=== PATIENT | male | born 1950 | race Caucasian/White ===

== ENCOUNTER → 2019-10-09 | Outpatient (REF) | payer BC, MEDICARE ==
[2019-10-10 12:01] LABS: MEAN CORPUSCULAR HEMOGLOBIN 29.4 pg (27.0-33.0); MEAN CORPUSCULAR HGB CONC 32.6 g/dl (32.0-36.5); PLATELET COUNT, AUTOMATED 259 10^3/uL (150-450); RED BLOOD COUNT 5.11 10^6/uL (4.30-6.10); WHITE BLOOD COUNT 7.5 10^3/uL (4.0-10.0)
[2019-10-10 12:32] LABS: BLOOD UREA NITROGEN 16 MG/DL (7-18); CALCIUM LEVEL 9.5 MG/DL (8.8-10.2); CARBON DIOXIDE LEVEL 33 MEQ/L (21-32); CHLORIDE LEVEL 99 MEQ/L (98-107); FOLATE 19.2 NG/ML; FREE T4 1.55 NG/DL (0.76-1.46); GLOMERULAR FILTRATION RATE > 60.0 (>42); GLUCOSE, FASTING 95 MG/DL (70-100); POTASSIUM SERUM 4.5 MEQ/L (3.5-5.1); SODIUM LEVEL 137 MEQ/L (136-145); VITAMIN B12 LEVEL 833 PG/ML
== END ==
LOC: M SFHCCLAY 14:19
PROVIDERS: ATTEND Family Medicine
DX: R41.3 Other amnesia (principal); Z76.89 Persons encountering health services in other specified circumstances

== ENCOUNTER 2023-09-11 14:40 | Inpatient (IN) | payer BC, MEDICARE ==
[~2023-09-11] VITALS: Ht 175.3 cm; Wt 61.3 kg
[2023-09-11 16:38] LABS: BASO % 0.6 % (0.0-1.0); EOS # 0.1 10^3/uL (0.0-0.5); HEMATOCRIT 39.5 % (42.0-52.0); HEMOGLOBIN 13.3 g/dl (13.5-17.5); LYMPH # 1.2 10^3/uL (1.5-5.0); LYMPH % 19.8 % (24.0-44.0); MEAN CORPUSCULAR HEMOGLOBIN 30.2 pg (27.0-33.0); MEAN CORPUSCULAR HGB CONC 33.7 g/dl (32.0-36.5); MEAN CORPUSCULAR VOLUME 89.6 fl (80.0-96.0); MONO # 0.5 10^3/uL (0.0-0.8); MONO % 7.7 % (2.0-8.0); NEUTROPHILS # 4.4 10^3/uL (1.5-8.5); NEUTROPHILS % 70.7 % (36.0-66.0); PLATELET COUNT, AUTOMATED 277 10^3/uL (150-450); RED BLOOD COUNT 4.41 10^6/uL (4.30-6.10); WHITE BLOOD COUNT 6.2 10^3/uL (4.0-10.0)
[2023-09-11 17:00] LABS: ALBUMIN 3.7 G/DL (3.2-5.2); ALKALINE PHOSPHATASE 67 U/L (46-116); ALT/SGPT < 9 U/L (7.0-40); AST/SGOT 10 U/L (<34); BILIRUBIN,DIRECT 0.4 MG/DL (<0.4); BILIRUBIN,TOTAL 1.2 MG/DL (0.3-1.2); BLOOD UREA NITROGEN 22 MG/DL (9-23); CALCIUM LEVEL 9.1 MG/DL (8.3-10.6); CARBON DIOXIDE LEVEL 28 MMOL/L (20-31); CHLORIDE LEVEL 104 MMOL/L (98-107); CREATININE FOR GFR 0.87 MG/DL (0.70-1.30); GLOMERULAR FILTRATION RATE > 60.0 (>42); GLUCOSE, FASTING 85 MG/DL (74-106); POTASSIUM SERUM 3.9 MMOL/L (3.5-5.1); SODIUM LEVEL 140 MMOL/L (136-145); TOTAL PROTEIN 6.4 G/DL (5.7-8.2)
[2023-09-11 17:01] LABS: THYROID STIMULATING HORMONE 1.633 uIU/ML (0.55-4.78)
[2023-09-11 17:16] LABS: RSV AMPLIFICATION NEGATIVE (NEGATIVE)
[2023-09-11] MEDS ORDERED: SINEMET 25-100 MG TAB PO STA (19:20)
[2023-09-11] MEDS ORDERED: CLOPIDOGREL 75 MG TAB PO ONE (19:20)
[2023-09-11] MEDS ORDERED: CLOP75TA2 PO (21:09)
[2023-09-11] MEDS ORDERED: FLUD0.1T PO (21:09)
[2023-09-11] MEDS ORDERED: DONE10TA90 PO (21:09)
[2023-09-11] MEDS ORDERED: CHOL125C6 PO (21:09)
[2023-09-11] MEDS ORDERED: CARB25TA9 PO (21:09)
[2023-09-11] MEDS ORDERED: OMEG10002 PO (21:10)
[2023-09-11] MEDS ORDERED: MELA5CAP2 PO (21:18)
[2023-09-11] MEDS ORDERED: HOME MED LIST COMPLETE! XX SCH (21:20)
[2023-09-11] MEDS ORDERED: MOM 30ML SUSPENSION UDC PO PRN (22:50)
[2023-09-11] MEDS ORDERED: ACETAMINOPHEN TAB 650MG DOSE (2X325MG) PO PRN (22:50)
[2023-09-11] MEDS ORDERED: MAALOX 30 ML SUSP *UDC PO PRN (22:50)
[2023-09-12] MEDS ORDERED: RAMELTEON 8 MG TAB (ROZEREM) PO ONE (01:30)
[2023-09-12] MEDS: FLUDROCORTISONE ACETATE 0.1 MG TAB PO SCH (06:22)
[2023-09-12] MEDS: SINEMET 25-100 MG TAB PO SCH ×3 (06:22→17:05)
[2023-09-12 10:35] VITALS: BP 141/82; TEMP 97.9; O2SAT 96
[2023-09-12] MEDS: DONEPEZIL 5 MG TAB PO SCH (11:57)
[2023-09-12 14:00] VITALS: BP 140/81; TEMP 98.1; O2SAT 96
[2023-09-12] MEDS: OMEGA-3 1000MG CAPSULE PO SCH (17:05)
[2023-09-12] MEDS: RAMELTEON 8 MG TAB (ROZEREM) PO SCH (17:05)
[2023-09-12] MEDS: CLOPIDOGREL 75 MG TAB PO SCH (17:05)
[2023-09-12] MEDS: VITAMIN D 1,000 INTERNATIONAL UNITS TABLET PO SCH (17:05)
[2023-09-12 20:00] VITALS: BP 160/94; TEMP 98.8; O2SAT 92
[2023-09-13 06:00] VITALS: BP 174/84; TEMP 98.1; O2SAT 94
[2023-09-13] MEDS: FLUDROCORTISONE ACETATE 0.1 MG TAB PO SCH (06:06)
[2023-09-13] MEDS: SINEMET 25-100 MG TAB PO SCH ×3 (06:06→17:42)
[2023-09-13] MEDS: DONEPEZIL 5 MG TAB PO SCH (12:02)
[2023-09-13 14:00] VITALS: BP 136/89; TEMP 97.5; O2SAT 95
[2023-09-13] MEDS: RAMELTEON 8 MG TAB (ROZEREM) PO SCH (17:42)
[2023-09-13] MEDS: OMEGA-3 1000MG CAPSULE PO SCH (17:42)
[2023-09-13] MEDS: VITAMIN D 1,000 INTERNATIONAL UNITS TABLET PO SCH (17:42)
[2023-09-13] MEDS: CLOPIDOGREL 75 MG TAB PO SCH (17:42)
[2023-09-13 20:00] VITALS: BP 135/76; TEMP 98.2; O2SAT 97
[2023-09-14 06:00] VITALS: BP 142/77; TEMP 98.8; O2SAT 98
[2023-09-14] MEDS: SINEMET 25-100 MG TAB PO SCH ×3 (06:42→18:00)
[2023-09-14] MEDS: FLUDROCORTISONE ACETATE 0.1 MG TAB PO SCH (06:42)
[2023-09-14] MEDS: DONEPEZIL 5 MG TAB PO SCH (12:11)
[2023-09-14] MEDS: VITAMIN D 1,000 INTERNATIONAL UNITS TABLET PO SCH (18:00)
[2023-09-14] MEDS: RAMELTEON 8 MG TAB (ROZEREM) PO SCH (18:00)
[2023-09-14] MEDS: OMEGA-3 1000MG CAPSULE PO SCH (18:00)
[2023-09-14] MEDS: CLOPIDOGREL 75 MG TAB PO SCH (18:00)
[2023-09-15 00:04] LABS: ALBUMIN 3.4 G/DL (3.2-5.2); ALKALINE PHOSPHATASE 70 U/L (46-116); ALT/SGPT < 9 U/L (7.0-40); AST/SGOT 8 U/L (<34); BILIRUBIN,TOTAL 0.9 MG/DL (0.3-1.2); BLOOD UREA NITROGEN 22 MG/DL (9-23); CALCIUM LEVEL 8.8 MG/DL (8.3-10.6); CARBON DIOXIDE LEVEL 33 MMOL/L (20-31); CHLORIDE LEVEL 102 MMOL/L (98-107); CREATININE FOR GFR 0.75 MG/DL (0.70-1.30); GLOMERULAR FILTRATION RATE > 60.0 (>42); GLUCOSE, FASTING 102 MG/DL (74-106); POTASSIUM SERUM 3.7 MMOL/L (3.5-5.1); SODIUM LEVEL 138 MMOL/L (136-145); TOTAL PROTEIN 5.9 G/DL (5.7-8.2)
[2023-09-15 00:13] LABS: HEMATOCRIT 38.5 % (42.0-52.0); HEMOGLOBIN 13.2 g/dl (13.5-17.5); MEAN CORPUSCULAR HEMOGLOBIN 30.1 pg (27.0-33.0); MEAN CORPUSCULAR HGB CONC 34.3 g/dl (32.0-36.5); MEAN CORPUSCULAR VOLUME 87.7 fl (80.0-96.0); PLATELET COUNT, AUTOMATED 271 10^3/uL (150-450); RED BLOOD COUNT 4.39 10^6/uL (4.30-6.10)
[2023-09-15 00:52] LABS: APPEARANCE, URINE CLEAR (CLEAR); BACTERIA, URINE AUTO NEGATIVE (NEGATIVE); BILIRUBIN, URINE AUTO NEGATIVE (NEGATIVE); BLOOD, URINE BLOOD NEGATIVE (NEGATIVE); COLOR, URINE YELLOW (YELLOW); GLUCOSE, URINE (UA) AUTO NEGATIVE (NEGATIVE); KETONE, URINE AUTO TRACE mg/dL (NEGATIVE); LEUKOCYTE ESTERASE, URINE AUTO NEGATIVE (NEGATIVE); MUCUS, URINE SMALL (NEGATIVE); NITRITE, URINE AUTO NEGATIVE (NEGATIVE); PROTEIN, URINE AUTO NEGATIVE (NEGATIVE); RBC, URINE AUTO 2 /HPF (0-3); SPECIFIC GRAVITY URINE AUTO 1.017 (1.002-1.035); SQUAMOUS EPITHELIAL CELL UR AU 0 /HPF (0-6); UROBILINOGEN, URINE AUTO 0.2 mg/dL (0.0-2.0); WBC, URINE AUTO 0 /HPF (0-3)
[2023-09-15] MEDS: FLUDROCORTISONE ACETATE 0.1 MG TAB PO SCH (05:26)
[2023-09-15] MEDS: SINEMET 25-100 MG TAB PO SCH ×3 (05:26→18:33)
[2023-09-15 05:30] VITALS: BP 111/68; TEMP 98.2; O2SAT 96
[2023-09-15] MEDS: DONEPEZIL 5 MG TAB PO SCH (12:47)
[2023-09-15] MEDS: RAMELTEON 8 MG TAB (ROZEREM) PO SCH (18:33)
[2023-09-15] MEDS: VITAMIN D 1,000 INTERNATIONAL UNITS TABLET PO SCH (18:33)
[2023-09-15] MEDS: CLOPIDOGREL 75 MG TAB PO SCH (18:33)
[2023-09-15] MEDS: OMEGA-3 1000MG CAPSULE PO SCH (18:33)
[2023-09-15] MEDS ORDERED: LORazepam 2 MG/ML 1ML VIAL IV PRN (22:40)
[2023-09-16 05:56] VITALS: BP 150/76; TEMP 98.2; O2SAT 98
[2023-09-16] MEDS: FLUDROCORTISONE ACETATE 0.1 MG TAB PO SCH (06:02)
[2023-09-16] MEDS: SINEMET 25-100 MG TAB PO SCH ×3 (06:02→17:38)
[2023-09-16] MEDS: DONEPEZIL 5 MG TAB PO SCH (12:39)
[2023-09-16] MEDS: OMEGA-3 1000MG CAPSULE PO SCH (17:36)
[2023-09-16] MEDS: VITAMIN D 1,000 INTERNATIONAL UNITS TABLET PO SCH (17:37)
[2023-09-16] MEDS: RAMELTEON 8 MG TAB (ROZEREM) PO SCH (17:37)
[2023-09-16] MEDS: CLOPIDOGREL 75 MG TAB PO SCH (17:38)
[2023-09-16] MEDS: traZODone 25MG PER 1/2 TABLET PO SCH (20:10)
[2023-09-17] MEDS: SINEMET 25-100 MG TAB PO SCH ×3 (09:34→17:17)
[2023-09-17] MEDS: DONEPEZIL 5 MG TAB PO SCH (14:13)
[2023-09-17] MEDS: FLUDROCORTISONE ACETATE 0.1 MG TAB PO SCH (14:13)
[2023-09-17] MEDS: RAMELTEON 8 MG TAB (ROZEREM) PO SCH (17:17)
[2023-09-17] MEDS: VITAMIN D 1,000 INTERNATIONAL UNITS TABLET PO SCH (17:18)
[2023-09-17] MEDS: OMEGA-3 1000MG CAPSULE PO SCH (17:18)
[2023-09-17] MEDS: CLOPIDOGREL 75 MG TAB PO SCH (17:18)
[2023-09-17] MEDS: traZODone 25MG PER 1/2 TABLET PO SCH (20:18)
[2023-09-18 06:00] VITALS: BP 119/74; TEMP 97.9; O2SAT 98
[2023-09-18] MEDS: FLUDROCORTISONE ACETATE 0.1 MG TAB PO SCH (06:03)
[2023-09-18] MEDS: SINEMET 25-100 MG TAB PO SCH ×3 (06:03→17:47)
[2023-09-18] MEDS: DONEPEZIL 5 MG TAB PO SCH (11:49)
[2023-09-18] MEDS: OMEGA-3 1000MG CAPSULE PO SCH (17:47)
[2023-09-18] MEDS: CLOPIDOGREL 75 MG TAB PO SCH (17:47)
[2023-09-18] MEDS: RAMELTEON 8 MG TAB (ROZEREM) PO SCH (17:47)
[2023-09-18] MEDS: VITAMIN D 1,000 INTERNATIONAL UNITS TABLET PO SCH (17:47)
[2023-09-18] MEDS: traZODone 25MG PER 1/2 TABLET PO SCH (19:13)
[2023-09-19 05:20] VITALS: BP 120/60; TEMP 98.6; O2SAT 96
[2023-09-19] MEDS: SINEMET 25-100 MG TAB PO SCH ×3 (06:00→17:20)
[2023-09-19] MEDS: FLUDROCORTISONE ACETATE 0.1 MG TAB PO SCH (10:14)
[2023-09-19] MEDS: DONEPEZIL 5 MG TAB PO SCH (12:06)
[2023-09-19] MEDS: CLOPIDOGREL 75 MG TAB PO SCH (17:20)
[2023-09-19] MEDS: RAMELTEON 8 MG TAB (ROZEREM) PO SCH (17:20)
[2023-09-19] MEDS: OMEGA-3 1000MG CAPSULE PO SCH (17:20)
[2023-09-19] MEDS: VITAMIN D 1,000 INTERNATIONAL UNITS TABLET PO SCH (17:21)
[2023-09-19] MEDS: traZODone 25MG PER 1/2 TABLET PO SCH (19:00)
[2023-09-20] MEDS: SINEMET 25-100 MG TAB PO SCH ×3 (05:25→16:59)
[2023-09-20] MEDS: FLUDROCORTISONE ACETATE 0.1 MG TAB PO SCH (05:26)
[2023-09-20 05:28] VITALS: BP 160/96; TEMP 98.1; O2SAT 96
[2023-09-20] MEDS: DONEPEZIL 5 MG TAB PO SCH (12:07)
[2023-09-20 16:58] VITALS: BP 144/86; TEMP 98.8
[2023-09-20] MEDS: CLOPIDOGREL 75 MG TAB PO SCH (16:59)
[2023-09-20] MEDS: RAMELTEON 8 MG TAB (ROZEREM) PO SCH (16:59)
[2023-09-20] MEDS: VITAMIN D 1,000 INTERNATIONAL UNITS TABLET PO SCH (16:59)
[2023-09-20] MEDS: OMEGA-3 1000MG CAPSULE PO SCH (17:00)
[2023-09-20] MEDS: traZODone 25MG PER 1/2 TABLET PO SCH (19:35)
[2023-09-21 05:31] VITALS: BP 102/61; TEMP 97.9; O2SAT 95
[2023-09-21] MEDS: FLUDROCORTISONE ACETATE 0.1 MG TAB PO SCH (05:34)
[2023-09-21] MEDS: SINEMET 25-100 MG TAB PO SCH ×3 (05:34→18:36)
[2023-09-21] MEDS: DONEPEZIL 5 MG TAB PO SCH (11:31)
[2023-09-21] MEDS: CLOPIDOGREL 75 MG TAB PO SCH (18:35)
[2023-09-21] MEDS: RAMELTEON 8 MG TAB (ROZEREM) PO SCH (18:35)
[2023-09-21] MEDS: VITAMIN D 1,000 INTERNATIONAL UNITS TABLET PO SCH (18:36)
[2023-09-21] MEDS: OMEGA-3 1000MG CAPSULE PO SCH (18:36)
[2023-09-21] MEDS: traZODone 25MG PER 1/2 TABLET PO SCH (19:21)
[2023-09-22 05:15] VITALS: BP 147/78; TEMP 98.1; O2SAT 95
[2023-09-22] MEDS: FLUDROCORTISONE ACETATE 0.1 MG TAB PO SCH (05:18)
[2023-09-22] MEDS: SINEMET 25-100 MG TAB PO SCH ×3 (05:18→17:42)
[2023-09-22] MEDS: DONEPEZIL 5 MG TAB PO SCH (12:25)
[2023-09-22] MEDS: VITAMIN D 1,000 INTERNATIONAL UNITS TABLET PO SCH (17:40)
[2023-09-22] MEDS: OMEGA-3 1000MG CAPSULE PO SCH (17:42)
[2023-09-22] MEDS: RAMELTEON 8 MG TAB (ROZEREM) PO SCH (17:42)
[2023-09-22] MEDS: CLOPIDOGREL 75 MG TAB PO SCH (17:42)
[2023-09-22] MEDS: traZODone 25MG PER 1/2 TABLET PO SCH (19:25)
[2023-09-23] MEDS: FLUDROCORTISONE ACETATE 0.1 MG TAB PO SCH (05:30)
[2023-09-23] MEDS: SINEMET 25-100 MG TAB PO SCH ×3 (05:31→17:24)
[2023-09-23 06:00] VITALS: BP 139/86; TEMP 98.4; O2SAT 97
[2023-09-23] MEDS: DONEPEZIL 5 MG TAB PO SCH (12:02)
[2023-09-23] MEDS: OMEGA-3 1000MG CAPSULE PO SCH (17:23)
[2023-09-23] MEDS: RAMELTEON 8 MG TAB (ROZEREM) PO SCH (17:24)
[2023-09-23] MEDS: VITAMIN D 1,000 INTERNATIONAL UNITS TABLET PO SCH (17:24)
[2023-09-23] MEDS: CLOPIDOGREL 75 MG TAB PO SCH (17:24)
[2023-09-23] MEDS: traZODone 25MG PER 1/2 TABLET PO SCH (19:55)
[2023-09-24] MEDS: FLUDROCORTISONE ACETATE 0.1 MG TAB PO SCH (05:30)
[2023-09-24] MEDS: SINEMET 25-100 MG TAB PO SCH ×3 (05:30→18:31)
[2023-09-24 06:00] VITALS: BP 136/75; TEMP 98.1; O2SAT 99
[2023-09-24] MEDS: DONEPEZIL 5 MG TAB PO SCH (12:11)
[2023-09-24] MEDS: CLOPIDOGREL 75 MG TAB PO SCH (18:31)
[2023-09-24] MEDS: VITAMIN D 1,000 INTERNATIONAL UNITS TABLET PO SCH (18:31)
[2023-09-24] MEDS: OMEGA-3 1000MG CAPSULE PO SCH (18:31)
[2023-09-24] MEDS: RAMELTEON 8 MG TAB (ROZEREM) PO SCH (18:31)
[2023-09-24] MEDS: traZODone 25MG PER 1/2 TABLET PO SCH (20:51)
[2023-09-25 06:00] VITALS: BP 123/65; TEMP 97.3; O2SAT 97
[2023-09-25] MEDS: FLUDROCORTISONE ACETATE 0.1 MG TAB PO SCH (06:17)
[2023-09-25] MEDS: SINEMET 25-100 MG TAB PO SCH ×3 (06:17→17:19)
[2023-09-25] MEDS: DONEPEZIL 5 MG TAB PO SCH (13:06)
[2023-09-25] MEDS: RAMELTEON 8 MG TAB (ROZEREM) PO SCH (17:19)
[2023-09-25] MEDS: VITAMIN D 1,000 INTERNATIONAL UNITS TABLET PO SCH (17:19)
[2023-09-25] MEDS: OMEGA-3 1000MG CAPSULE PO SCH (17:20)
[2023-09-25] MEDS: CLOPIDOGREL 75 MG TAB PO SCH (17:20)
[2023-09-25] MEDS: traZODone 25MG PER 1/2 TABLET PO SCH (19:50)
[2023-09-26 05:25] VITALS: BP 124/73; TEMP 97.5; O2SAT 97
[2023-09-26] MEDS: SINEMET 25-100 MG TAB PO SCH ×3 (05:54→18:12)
[2023-09-26] MEDS: FLUDROCORTISONE ACETATE 0.1 MG TAB PO SCH (05:54)
[2023-09-26] MEDS: DONEPEZIL 5 MG TAB PO SCH (12:46)
[2023-09-26] MEDS: RAMELTEON 8 MG TAB (ROZEREM) PO SCH (18:12)
[2023-09-26] MEDS: OMEGA-3 1000MG CAPSULE PO SCH (18:12)
[2023-09-26] MEDS: VITAMIN D 1,000 INTERNATIONAL UNITS TABLET PO SCH (18:12)
[2023-09-26] MEDS: CLOPIDOGREL 75 MG TAB PO SCH (18:12)
[2023-09-26] MEDS: traZODone 25MG PER 1/2 TABLET PO SCH (20:05)
[2023-09-27 06:00] VITALS: BP 147/81; TEMP 98.1; O2SAT 97
[2023-09-27] MEDS: SINEMET 25-100 MG TAB PO SCH ×2 (06:36→12:44)
[2023-09-27] MEDS: FLUDROCORTISONE ACETATE 0.1 MG TAB PO SCH (06:36)
[2023-09-27] MEDS: DONEPEZIL 5 MG TAB PO SCH (12:44)
== END 2023-09-27 13:54 | DRG 42 ==
LOC: EDBD 14:40 → M ED 14:40 → M ED INP 22:46 → ENRESERV 09-12 10:04 → M MSPAV 09-12 10:21
PROVIDERS: ADMIT Family Medicine; ATTEND Student in an Organized Health Care Education/Training Program
DX: G30.9 Alzheimer's disease, unspecified (principal); F02.811 Dementia in other diseases classified elsewhere, unspecified severity, with agitation; G47.00 Insomnia, unspecified; M79.7 Fibromyalgia; Z66 Do not resuscitate; Z79.899 Other long term (current) drug therapy; Z88.6 Allergy status to analgesic agent; Z87.891 Personal history of nicotine dependence

== ENCOUNTER 2023-11-07 07:49 | Observation (INO) | payer BC, MEDICARE ==
[~2023-11-07] VITALS: Ht 177.8 cm; Wt 54.7 kg
[~2023-11-07 07:49] MED LIST: CARB25TA9 PO; CHOL125C6 PO; CLOP75TA2 PO; DONE10TA90 PO; FLUD0.1T PO; MELA5CAP2 PO; OMEG10002 PO
[2023-11-07 08:00] VITALS: TEMP 97.5
[2023-11-07 09:07] LABS: HEMOGLOBIN 14.2 g/dl (13.5-17.5); MEAN CORPUSCULAR HEMOGLOBIN 30.1 pg (27.0-33.0); MEAN CORPUSCULAR HGB CONC 33.8 g/dl (32.0-36.5); MEAN CORPUSCULAR VOLUME 89.2 fl (80.0-96.0); PLATELET COUNT, AUTOMATED 258 10^3/uL (150-450); RED BLOOD COUNT 4.71 10^6/uL (4.30-6.10); WHITE BLOOD COUNT 5.9 10^3/uL (4.0-10.0)
[2023-11-07 09:38] LABS: BLOOD UREA NITROGEN 25 MG/DL (9-23); CALCIUM LEVEL 8.7 MG/DL (8.3-10.6); CARBON DIOXIDE LEVEL 29 MMOL/L (20-31); CHLORIDE LEVEL 103 MMOL/L (98-107); CREATININE FOR GFR 0.87 MG/DL (0.70-1.30); GLOMERULAR FILTRATION RATE > 60.0 (>42); GLUCOSE, FASTING 93 MG/DL (74-106); POTASSIUM SERUM 3.5 MMOL/L (3.5-5.1); SODIUM LEVEL 139 MMOL/L (136-145)
[2023-11-07] MEDS ORDERED: APAP325T4 PO (11:13)
[2023-11-07] MEDS ORDERED: MILKSUS3 PO (11:13)
[2023-11-07] MEDS ORDERED: BISA10SU27 PR (11:13)
[2023-11-07] MEDS ORDERED: FLEEENE12 PR (11:13)
[2023-11-07] MEDS ORDERED: MELA1TAB9 PO (11:19)
[2023-11-07] MEDS ORDERED: HOME MED LIST COMPLETE! XX SCH (11:20)
[2023-11-07] MEDS ORDERED: MOM 30ML SUSPENSION UDC PO PRN (12:00)
[2023-11-07] MEDS ORDERED: FLEET ENEMA PR PRN (12:00)
[2023-11-07] MEDS ORDERED: ACETAMINOPHEN TAB 650MG DOSE (2X325MG) PO PRN (12:00)
[2023-11-07] MEDS ORDERED: BISACODYL 10MG SUPP PR PRN (12:00)
[2023-11-07] MEDS: FLUDROCORTISONE ACETATE 0.1 MG TAB PO SCH (12:48)
[2023-11-07 14:30] VITALS: BP 143/90; O2SAT 99
[2023-11-07] MEDS: SINEMET 25-100 MG TAB PO SCH (15:44)
[2023-11-07] MEDS: DOCUSATE SODIUM 100MG CAPSULE PO SCH (21:18)
[2023-11-07] MEDS: RAMELTEON 8 MG TAB (ROZEREM) PO SCH (21:18)
[2023-11-07] MEDS: OMEGA-3 1000MG CAPSULE PO SCH (21:18)
[2023-11-08] MEDS: VITAMIN D 1,000 INTERNATIONAL UNITS TABLET PO SCH (08:41)
== END 2023-11-08 08:58 ==
LOC: M ED 07:49 → EDBD 07:49 → M ED INP 11:59 → ENRESERV 14:24 → M MSPAV 15:08
PROVIDERS: ADMIT Student in an Organized Health Care Education/Training Program; ATTEND General Practice
DX: S01.81XA Laceration without foreign body of other part of head, initial encounter (principal); M25.552 Pain in left hip; M25.512 Pain in left shoulder; W06.XXXA Fall from bed, initial encounter; Y92.122 Bedroom in nursing home as the place of occurrence of the external cause; Y93.89 Activity, other specified; Y99.9 Unspecified external cause status; R91.8 Other nonspecific abnormal finding of lung field; G30.8 Other Alzheimer's disease; F02.818 Dementia in other diseases classified elsewhere, unspecified severity, with other behavioral disturbance; G31.83 Neurocognitive disorder with Lewy bodies; Z86.73 Personal history of transient ischemic attack (TIA), and cerebral infarction without residual deficits; I67.82 Cerebral ischemia; I95.1 Orthostatic hypotension; M79.7 Fibromyalgia; Z88.6 Allergy status to analgesic agent; Z79.899 Other long term (current) drug therapy; Z79.02 Long term (current) use of antithrombotics/antiplatelets; Z79.82 Long term (current) use of aspirin; Z66 Do not resuscitate; Z51.5 Encounter for palliative care

== ENCOUNTER → 2023-11-16 | Outpatient (REF) | payer BC, MEDICARE ==
[~2023-11-16] MED LIST changes: +APAP325T4 PO; +BISA10SU27 PR; +FLEEENE12 PR; +MELA5TAB58 PO; +MILKSUS3 PO
[2023-11-16 23:48] LABS: BASO % 0.4 % (0.0-1.0); HEMOGLOBIN 11.7 g/dl (13.5-17.5); LYMPH # 0.3 10^3/uL (1.5-5.0); LYMPH % 3.2 % (24.0-44.0); MEAN CORPUSCULAR HEMOGLOBIN 29.7 pg (27.0-33.0); MEAN CORPUSCULAR HGB CONC 33.4 g/dl (32.0-36.5); MEAN CORPUSCULAR VOLUME 88.8 fl (80.0-96.0); MONO # 0.6 10^3/uL (0.0-0.8); MONO % 7.6 % (2.0-8.0); NEUTROPHILS # 7.1 10^3/uL (1.5-8.5); NEUTROPHILS % 88.6 % (36.0-66.0); PLATELET COUNT, AUTOMATED 241 10^3/uL (150-450); RED BLOOD COUNT 3.94 10^6/uL (4.30-6.10); WHITE BLOOD COUNT 8.1 10^3/uL (4.0-10.0)
[2023-11-17 00:03] LABS: BLOOD UREA NITROGEN 26 MG/DL (9-23); CALCIUM LEVEL 7.6 MG/DL (8.3-10.6); CARBON DIOXIDE LEVEL 30 MMOL/L (20-31); CHLORIDE LEVEL 103 MMOL/L (98-107); CREATININE FOR GFR 0.75 MG/DL (0.70-1.30); GLOMERULAR FILTRATION RATE > 60.0 (>42); GLUCOSE, FASTING 107 MG/DL (74-106); SODIUM LEVEL 138 MMOL/L (136-145)
== END ==
LOC: SKLAB8 19:21
PROVIDERS: ATTEND Internal Medicine
DX: U07.1 COVID-19 (principal)

== ENCOUNTER → 2023-11-16 | Outpatient (REF) | payer BC, MEDICARE | LOC: SKLAB8 14:51 | PROVIDERS: ATTEND Internal Medicine | DX: U07.1 COVID-19 (principal); R05.9 Cough, unspecified; R50.9 Fever, unspecified ==

== ENCOUNTER → 2023-12-07 | Outpatient (REF) | payer MEDICARE ==
[2023-12-07 14:05] LABS: BASO % 0.7 % (0.0-1.0); EOS % 0.7 % (0.0-3.0); HEMATOCRIT 36.5 % (42.0-52.0); HEMOGLOBIN 11.9 g/dl (13.5-17.5); LYMPH # 1.2 10^3/uL (1.5-5.0); LYMPH % 20.8 % (24.0-44.0); MEAN CORPUSCULAR HEMOGLOBIN 29.7 pg (27.0-33.0); MEAN CORPUSCULAR HGB CONC 32.6 g/dl (32.0-36.5); MONO # 0.5 10^3/uL (0.0-0.8); MONO % 8.3 % (2.0-8.0); NEUTROPHILS # 3.8 10^3/uL (1.5-8.5); NEUTROPHILS % 69.5 % (36.0-66.0); PLATELET COUNT, AUTOMATED 262 10^3/uL (150-450); RED BLOOD COUNT 4.01 10^6/uL (4.30-6.10); WHITE BLOOD COUNT 5.5 10^3/uL (4.0-10.0)
[2023-12-07 14:40] LABS: ALBUMIN 3.2 G/DL (3.2-5.2); ALKALINE PHOSPHATASE 83 U/L (46-116); ALT/SGPT < 9 U/L (7.0-40); AST/SGOT 9 U/L (<34); BILIRUBIN,TOTAL 1.3 MG/DL (0.3-1.2); BLOOD UREA NITROGEN 28 MG/DL (9-23); CARBON DIOXIDE LEVEL 35 MMOL/L (20-31); CHLORIDE LEVEL 104 MMOL/L (98-107); CREATININE FOR GFR 0.71 MG/DL (0.70-1.30); GLOMERULAR FILTRATION RATE > 60.0 (>42); GLUCOSE, FASTING 93 MG/DL (74-106); POTASSIUM SERUM 3.2 MMOL/L (3.5-5.1); SODIUM LEVEL 142 MMOL/L (136-145); TOTAL PROTEIN 5.6 G/DL (5.7-8.2)
== END ==
LOC: SKLAB8 12:59
PROVIDERS: ATTEND Nurse Practitioner Family
DX: R44.3 Hallucinations, unspecified (principal)

== ENCOUNTER 2023-12-09 12:11 | Emergency (ER) | payer BC, MEDICARE ==
[~2023-12-09] VITALS: Ht 185.4 cm; Wt 52.7 kg
[2023-12-09] MEDS: LIDOCAINE 2% 5ML JELLY UROJET TOP ONE (12:45)
[2023-12-09 13:10] LABS: HEMATOCRIT 39.7 % (42.0-52.0); HEMOGLOBIN 13.3 g/dl (13.5-17.5); MEAN CORPUSCULAR HEMOGLOBIN 29.8 pg (27.0-33.0); MEAN CORPUSCULAR HGB CONC 33.5 g/dl (32.0-36.5); PLATELET COUNT, AUTOMATED 257 10^3/uL (150-450); RED BLOOD COUNT 4.46 10^6/uL (4.30-6.10); WHITE BLOOD COUNT 8.1 10^3/uL (4.0-10.0)
[2023-12-09 13:11] LABS: BASO % 0.4 % (0.0-1.0); EOS # 0.1 10^3/uL (0.0-0.5); EOS % 0.7 % (0.0-3.0); LYMPH % 12.8 % (24.0-44.0); MONO # 0.6 10^3/uL (0.0-0.8); MONO % 7.4 % (2.0-8.0); NEUTROPHILS # 6.3 10^3/uL (1.5-8.5); NEUTROPHILS % 78.5 % (36.0-66.0)
[2023-12-09 13:21] LABS: ALBUMIN 3.4 G/DL (3.2-5.2); ALKALINE PHOSPHATASE 91 U/L (46-116); ALT/SGPT < 9 U/L (7.0-40); AST/SGOT 18 U/L (<34); BILIRUBIN,TOTAL 1.9 MG/DL (0.3-1.2); BLOOD UREA NITROGEN 26 MG/DL (9-23); CALCIUM LEVEL 9.1 MG/DL (8.3-10.6); CARBON DIOXIDE LEVEL 34 MMOL/L (20-31); CHLORIDE LEVEL 104 MMOL/L (98-107); CK-MB VALUE MASS 1.1 NG/ML (<3.6); CPK CREATINE PHOSPHOKINASE 224 U/L (46-171); GLOMERULAR FILTRATION RATE > 60.0 (>42); GLUCOSE, FASTING 104 MG/DL (74-106); MB/CK RELATIVE INDEX 0.49 (< OR =4); POTASSIUM SERUM 3.9 MMOL/L (3.5-5.1); SODIUM LEVEL 142 MMOL/L (136-145); TOTAL PROTEIN 6.1 G/DL (5.7-8.2)
[2023-12-09] MEDS: NS 500 ML IV ONE (13:30)
[2023-12-09 14:45] VITALS: BP 151/75; TEMP 97.2; O2SAT 95
== END 2023-12-09 14:46 | disposition home or self-care (01) ==
LOC: EDBD 12:11 → M ED 14:16
DX: S00.03XA Contusion of scalp, initial encounter (principal); Y92.9 Unspecified place or not applicable; Y93.9 Activity, unspecified; Y99.9 Unspecified external cause status; W19.XXXA Unspecified fall, initial encounter; E78.00 Pure hypercholesterolemia, unspecified; G20.A1 Parkinson's disease without dyskinesia, without mention of fluctuations; Z88.8 Allergy status to other drugs, medicaments and biological substances; Z79.1 Long term (current) use of non-steroidal anti-inflammatories (NSAID); Z79.899 Other long term (current) drug therapy